=== PATIENT | male | born 1955 | race African-American/Black ===

== ENCOUNTER 2022-11-12 20:16 | Inpatient (IN) | payer MEDICARE, OTHER ==
[~2022-11-12] VITALS: Ht 182.9 cm; Wt 78.8 kg
[~2022-11-12 20:16] MED LIST: BUSP10TA31 PO; TRAZ-181 PO
[2022-11-12] MEDS ORDERED: LORazepam 2MG/ML-1ML VIAL ONE (21:07)
[2022-11-12] MEDS ORDERED: LORazepam 2MG/ML-1ML VIAL IV ONE (21:15)
[2022-11-12 21:54] LABS: Basophils # (auto) 0.1 10 ^3/uL (0-0.2); Basophils % (auto) 0.8 % (0.0-2.0); Eosinophils # (auto) 0.2 10 ^3/uL (0-0.8); Eosinophils % (auto) 2.1 % (0.0-7.0); Hematocrit 28.8 % (41.0-53.0); Hemoglobin 9.9 g/dL (13.5-17.5); Lymphocytes # (auto) 0.5 10 ^3/uL (0.4-5.4); Lymphocytes % (auto) 5.4 % (10.0-50.0); Mean Corpuscular Hemoglobin 29.8 pg (28.0-32.0); Mean Corpuscular Hgb Conc. 34.4 g/dL (32.0-36.0); Mean Corpuscular Volume 86.6 fL (80.0-100.0); Monocytes # (auto) 0.6 10 ^3/uL (0-1.3); Monocytes % (auto) 6.4 % (0.0-12.0); Neutrophils # (auto) 8.4 10 ^3/uL (1.6-8.6); Neutrophils % (auto) 85.3 % (37.0-80.0); Red Blood Cells 3.32 10^6/uL (4.5-5.90); Red Cell Distribution Width 15.7 % (11.8-14.3); White Blood Cell 9.9 10^3/uL (4.4-10.8)
[2022-11-12 22:08] LABS: INR 1.2 (0.9-1.15); Partial Thromboplastin Time 36.9 sec (24.6-33.4)
[2022-11-12 22:10] LABS: Albumin 3.2 g/dL (3.4-5.0); Anion Gap 12 (5-15); Blood Urea Nitrogen 13 mg/dL (7-18); Calcium 9.1 mg/dL (8.5-10.1); Carbon Dioxide 24 mmol/L (21-32); Chloride 107 mmol/L (98-107); Glucose 113 mg/dL (74-106); Magnesium 2.2 mg/dL (1.6-2.6); Sodium 143 mmol/L (136-145)
[2022-11-12 22:12] LABS: Alanine Aminotransferase 20 U/L (16-61); Aspartate Aminotransferase 18 U/L (15-37); BUN/Creatinine Ratio 14.6; Blood Alcohol < 3.0 mg/dL (0-5); GFR African American 109 mL/min; GFR Non-African American 90 mL/min
[2022-11-12 22:15] LABS: Alkaline Phosphatase 70 U/L (45-117); Bilirubin, Total 0.3 mg/dL (0.2-1.0); Total Protein 7.3 g/dL (6.4-8.2)
[2022-11-12 22:17] LABS: Lactic Acid w/Reflex 3.4 mmol/L (0.4-2.0)
[2022-11-12] MEDS ORDERED: levETIRAcetam 500 MG/5ML INJ IV ONE (23:08)
[2022-11-12] MEDS ORDERED: LABETALOL HCL 5 MG/ML 4ML SYRINGE IV ONE (23:30)
[2022-11-13] MEDS ORDERED: ONDANSETRON HCL 4 MG/2 ML VIAL IV PRN (00:30)
[2022-11-13] MEDS ORDERED: MORPHINE SULFATE INJ 2 MG/ml SYRG IV PRN (00:30)
[2022-11-13] MEDS ORDERED: ACETAMINOPHEN 325 MG TAB PO PRN (00:30)
[2022-11-13] MEDS ORDERED: HYDROcodone-ACET 5/325MG TAB PO PRN (00:30)
[2022-11-13] MEDS ORDERED: DOCUSATE SOD 100 MG CAP PO PRN (00:30)
[2022-11-13] MEDS ORDERED: MAALOX PLUS or MAALOX 30 ML PO PRN (00:30)
[2022-11-13] MEDS: SODIUM CHLORIDE 0.9% 1,000 ML IV SCH ×2 (03:02→17:10)
[2022-11-13] MEDS: hydrALAZINE HCL 20 MG/ML VL IV PRN ×2 (03:15→20:13)
[2022-11-13 04:38] LABS: Alcohol, Urine < 3.0 mg/dL (0-10); Amphetamine Screen, Urine NEGATIVE (NEGATIVE); Barbiturate Scree,Urine NEGATIVE (NEGATIVE); Benzodiazephine Screen, Urine POSITIVE (NEGATIVE); Cannabinoid Screen, Urine NEGATIVE (NEGATIVE); Cocaine Screen, Urine NEGATIVE (NEGATIVE); Opiate Scree,Urine NEGATIVE (NEGATIVE)
[2022-11-13 04:46] LABS: Phencyclidine Screen, Urine NEGATIVE (NEGATIVE)
[2022-11-13] MEDS: LORazepam 2MG/ML-1ML VIAL IV PRN ×2 (05:00→13:42)
[2022-11-13 05:01] LABS: Urine Bacteria NONE SEEN /hpf (None Seen); Urine Blood 1+ /uL (Negative); Urine Mucus FEW (None Seen); Urine Specific Gravity 1.024 (1.001-1.035); Urine WBC 1 /hpf (0 - 3)
[2022-11-13 07:40] LABS: Potassium 3.4 mmol/L (3.5-5.1)
[2022-11-13 07:45] LABS: BUN/Creatinine Ratio 20.7; Basophils # (auto) 0.1 10 ^3/uL (0-0.2); Basophils % (auto) 0.7 % (0.0-2.0); Calcium 9.1 mg/dL (8.5-10.1); Eosinophils # (auto) 0.3 10 ^3/uL (0-0.8); Eosinophils % (auto) 4.1 % (0.0-7.0); Hemoglobin 8.7 g/dL (13.5-17.5); Lymphocytes # (auto) 0.6 10 ^3/uL (0.4-5.4); Mean Corpuscular Hgb Conc. 33.7 g/dL (32.0-36.0); Mean Corpuscular Volume 86.3 fL (80.0-100.0); Monocytes # (auto) 0.5 10 ^3/uL (0-1.3); Monocytes % (auto) 6.1 % (0.0-12.0); Neutrophils # (auto) 6.6 10 ^3/uL (1.6-8.6); Neutrophils % (auto) 82.1 % (37.0-80.0); Red Blood Cells 3.01 10^6/uL (4.5-5.90); Red Cell Distribution Width 15.6 % (11.8-14.3)
[2022-11-13] MEDS ORDERED: LORazepam 2MG/ML-1ML VIAL IV PRN (21:45)
[2022-11-13 22:24] LABS: Free T4 (Free Thyroxine) 1.25 ng/dL (0.89-1.76)
[2022-11-13 22:25] LABS: Folate (Folic Acid) 15.82 ng/mL (5.38-24)
[2022-11-13] MEDS: ATORVASTATIN 20 MG TAB PO SCH (22:54)
[2022-11-14] MEDS: ACETAMINOPHEN 650 MG RECT SUPP PR PRN (00:25)
[2022-11-14] MEDS: LORazepam 2MG/ML-1ML VIAL IV PRN (00:52)
[2022-11-14] MEDS: hydrALAZINE HCL 20 MG/ML VL IV PRN ×2 (03:18→17:15)
[2022-11-14] MEDS: ASPirin 81 mg TAB PO SCH (10:00)
[2022-11-14] MEDS: SODIUM CHLORIDE 0.9% 1,000 ML IV SCH (10:05)
[2022-11-14 16:35] LABS: Cholesterol 124 mg/dL (< 200)
[2022-11-14 16:38] LABS: HDL Cholesterol 42 mg/dL (40-59); LDL Cholesterol 57 mg/dL (< 100); Triglycerides 89 mg/dL (< 150)
[2022-11-14 20:00] VITALS: BP 146/78
[2022-11-14 22:00] VITALS: BP 171/80
[2022-11-14] MEDS: ATORVASTATIN 20 MG TAB PO SCH (22:00)
[2022-11-15] MEDS: SODIUM CHLORIDE 0.9% 1,000 ML IV SCH (02:30)
[2022-11-15 05:00] VITALS: BP 145/73
[2022-11-15 09:00] VITALS: BP 157/80
[2022-11-15] MEDS ORDERED: cefTRIAXone 1GM/50ML D5W 50 ML IV ONE (09:30)
[2022-11-15] MEDS: ASPirin 81 mg TAB PO SCH (10:00)
[2022-11-15] MEDS ORDERED: SODIUM CHLORIDE 0.9% 1,000 ML IV SCH (10:00)
[2022-11-15 10:29] LABS: Alanine Aminotransferase 16 U/L (16-61); Albumin 3.2 g/dL (3.4-5.0); Aspartate Aminotransferase 19 U/L (15-37); Basophils # (auto) 0 10 ^3/uL (0-0.2); Basophils % (auto) 0.5 % (0.0-2.0); Bilirubin, Direct < 0.1 mg/dL (0-0.2); Eosinophils # (auto) 0.1 10 ^3/uL (0-0.8); Eosinophils % (auto) 0.6 % (0.0-7.0); Hematocrit 27.8 % (41.0-53.0); Hemoglobin 8.9 g/dL (13.5-17.5); Lymphocytes # (auto) 0.6 10 ^3/uL (0.4-5.4); Lymphocytes % (auto) 7.1 % (10.0-50.0); Mean Corpuscular Hemoglobin 28.4 pg (28.0-32.0); Mean Corpuscular Hgb Conc. 32.2 g/dL (32.0-36.0); Mean Corpuscular Volume 88.2 fL (80.0-100.0); Monocytes # (auto) 0.6 10 ^3/uL (0-1.3); Monocytes % (auto) 6.6 % (0.0-12.0); Neutrophils # (auto) 7.4 10 ^3/uL (1.6-8.6); Neutrophils % (auto) 85.2 % (37.0-80.0); Red Blood Cells 3.15 10^6/uL (4.5-5.90); Red Cell Distribution Width 15.4 % (11.8-14.3); White Blood Cell 8.7 10^3/uL (4.4-10.8)
[2022-11-15 10:30] LABS: Potassium 3.6 mmol/L (3.5-5.1)
[2022-11-15] MEDS ORDERED: PHENYTOIN IV DILANTIN 1,000 MG in SODIUM CHL 0.9% 250 ML IV ONE (10:30)
[2022-11-15 10:31] LABS: BUN/Creatinine Ratio 21.2; Calcium 9.3 mg/dL (8.5-10.1)
[2022-11-15 10:32] LABS: Alkaline Phosphatase 58 U/L (45-117); Bilirubin, Total 0.5 mg/dL (0.2-1.0); Total Protein 7.1 g/dL (6.4-8.2)
[2022-11-15] MEDS: D5W/SOD CHLO 0.9% 1,000 ML IV SCH ×2 (12:55→21:47)
[2022-11-15 13:00] VITALS: BP 154/79
[2022-11-15] MEDS: hydrALAZINE HCL 20 MG/ML VL IV PRN (13:47)
[2022-11-15] MEDS ORDERED: PHENYTOIN SODIUM 50 MG/ML 2ML VIAL IV SCH (14:00)
[2022-11-15] MEDS: ACETAMINOPHEN 650 MG RECT SUPP PR PRN (14:46)
[2022-11-15] MEDS: LORazepam 2MG/ML-1ML VIAL IV PRN (15:05)
[2022-11-15 17:00] VITALS: BP 158/82
[2022-11-15] MEDS ORDERED: VALPROATE IV ONE (19:15)
[2022-11-15] MEDS ORDERED: SODIUM CHL 0.9% IV ONE (19:15)
[2022-11-15] MEDS: ATORVASTATIN 20 MG TAB PO SCH (21:48)
[2022-11-15 22:00] VITALS: BP 160/80
[2022-11-16 05:00] VITALS: BP 136/59
[2022-11-16] MEDS: VALPROATE INJ 500 MG in SODIUM CHL 0.9% 100 ML IV SCH ×3 (05:19→21:30)
[2022-11-16] MEDS: LORazepam 2MG/ML-1ML VIAL IV PRN (05:37)
[2022-11-16 06:03] LABS: Urine Bacteria NONE SEEN /hpf (None Seen); Urine Blood Negative /uL (Negative); Urine Mucus FEW (None Seen); Urine Specific Gravity 1.028 (1.001-1.035); Urine WBC 3 /hpf (0 - 3)
[2022-11-16 06:11] LABS: Basophils # (auto) 0 10 ^3/uL (0-0.2); Basophils % (auto) 0.6 % (0.0-2.0); Eosinophils # (auto) 0.2 10 ^3/uL (0-0.8); Eosinophils % (auto) 3.5 % (0.0-7.0); Hematocrit 25.2 % (41.0-53.0); Hemoglobin 8.7 g/dL (13.5-17.5); Lymphocytes # (auto) 0.7 10 ^3/uL (0.4-5.4); Lymphocytes % (auto) 10.9 % (10.0-50.0); Mean Corpuscular Hemoglobin 29.8 pg (28.0-32.0); Mean Corpuscular Hgb Conc. 34.3 g/dL (32.0-36.0); Mean Corpuscular Volume 86.7 fL (80.0-100.0); Monocytes # (auto) 0.4 10 ^3/uL (0-1.3); Monocytes % (auto) 5.6 % (0.0-12.0); Neutrophils # (auto) 5.4 10 ^3/uL (1.6-8.6); Neutrophils % (auto) 79.4 % (37.0-80.0); Red Blood Cells 2.91 10^6/uL (4.5-5.90); Red Cell Distribution Width 15.1 % (11.8-14.3); White Blood Cell 6.8 10^3/uL (4.4-10.8)
[2022-11-16 06:31] LABS: BUN/Creatinine Ratio 22.2; Calcium 8.7 mg/dL (8.5-10.1); Potassium 3.2 mmol/L (3.5-5.1)
[2022-11-16 09:00] VITALS: BP 158/76
[2022-11-16] MEDS: cefTRIAXone 1GM/50ML D5W 50 ML IV SCH (09:53)
[2022-11-16] MEDS: ASPirin 81 mg TAB PO SCH (10:00)
[2022-11-16 12:54] VITALS: BP 155/79
[2022-11-16] MEDS ORDERED: D5W/SOD CHLO 0.9% 1,000 ML IV SCH (16:45)
[2022-11-16] MEDS ORDERED: VANCOMYCIN PER PHARMACY 0 MG IV SCH (16:45)
[2022-11-16 17:00] VITALS: BP 171/86
[2022-11-16] MEDS ORDERED: VANCOMYCIN 1GM/250ML 250 ML IV ONE ×2 (17:00→17:15)
[2022-11-16] MEDS: hydrALAZINE HCL 20 MG/ML VL IV PRN (21:30)
[2022-11-16 22:00] VITALS: BP 179/85
[2022-11-16] MEDS: ATORVASTATIN 20 MG TAB PO SCH (22:00)
[2022-11-17] VITALS (7 sets, daily range): BP systolic 147–166; BP diastolic 76–89
[2022-11-17] MEDS: VANCOMYCIN 1GM/250ML 250 ML IV SCH ×2 (03:00→15:34)
[2022-11-17] MEDS: VALPROATE INJ 500 MG in SODIUM CHL 0.9% 100 ML IV SCH ×3 (05:32→21:16)
[2022-11-17 06:07] LABS: Basophils # (auto) 0 10 ^3/uL (0-0.2); Basophils % (auto) 0.5 % (0.0-2.0); Eosinophils # (auto) 0.2 10 ^3/uL (0-0.8); Eosinophils % (auto) 2.2 % (0.0-7.0); Hematocrit 26.2 % (41.0-53.0); Hemoglobin 8.7 g/dL (13.5-17.5); Lymphocytes # (auto) 0.8 10 ^3/uL (0.4-5.4); Lymphocytes % (auto) 11.4 % (10.0-50.0); Mean Corpuscular Hemoglobin 28.7 pg (28.0-32.0); Mean Corpuscular Hgb Conc. 33.2 g/dL (32.0-36.0); Mean Corpuscular Volume 86.4 fL (80.0-100.0); Monocytes # (auto) 0.4 10 ^3/uL (0-1.3); Monocytes % (auto) 6.3 % (0.0-12.0); Neutrophils # (auto) 5.5 10 ^3/uL (1.6-8.6); Neutrophils % (auto) 79.6 % (37.0-80.0); Nucleated Red Blood Cells % 0.1 %; Red Blood Cells 3.03 10^6/uL (4.5-5.90); Red Cell Distribution Width 15.1 % (11.8-14.3); White Blood Cell 6.9 10^3/uL (4.4-10.8)
[2022-11-17 06:29] LABS: BUN/Creatinine Ratio 19.2; Calcium 8.5 mg/dL (8.5-10.1); Potassium 3.3 mmol/L (3.5-5.1)
[2022-11-17] MEDS: cefTRIAXone 1GM/50ML D5W 50 ML IV SCH (09:25)
[2022-11-17] MEDS: ASPirin 81 mg TAB PO SCH (09:26)
[2022-11-17] MEDS: hydrALAZINE HCL 20 MG/ML VL IV PRN ×2 (09:50→18:04)
[2022-11-17] MEDS: D5W/SOD CHL 0.45%/KCL 20MEQ 1,000 ML IV SCH (18:45)
[2022-11-17] MEDS: ATORVASTATIN 20 MG TAB PO SCH (22:00)
[2022-11-18] MEDS: VANCOMYCIN 1GM/250ML 250 ML IV SCH (00:53)
[2022-11-18] MEDS: ALBUTEROL SULF 2.5 MG/0.5ML(0.5%) NEB SOLN NEB PRN (02:15)
[2022-11-18] MEDS: IPRATROPIUM BROM 0.5 MG/2.5ML INH SOL NEB PRN (02:15)
[2022-11-18] MEDS ORDERED: ALBUTEROL MEDNEB 2.5 mg/3ml NEB ONE (02:20)
[2022-11-18 04:59] VITALS: BP 193/97
[2022-11-18 05:27] LABS: Basophils # (auto) 0 10 ^3/uL (0-0.2); Basophils % (auto) 0.3 % (0.0-2.0); Eosinophils # (auto) 0.2 10 ^3/uL (0-0.8); Eosinophils % (auto) 1.8 % (0.0-7.0); Hematocrit 26.4 % (41.0-53.0); Hemoglobin 8.7 g/dL (13.5-17.5); Lymphocytes # (auto) 0.8 10 ^3/uL (0.4-5.4); Lymphocytes % (auto) 9.5 % (10.0-50.0); Mean Corpuscular Hemoglobin 28.8 pg (28.0-32.0); Mean Corpuscular Hgb Conc. 32.8 g/dL (32.0-36.0); Mean Corpuscular Volume 87.8 fL (80.0-100.0); Monocytes # (auto) 0.5 10 ^3/uL (0-1.3); Monocytes % (auto) 5.5 % (0.0-12.0); Neutrophils # (auto) 6.9 10 ^3/uL (1.6-8.6); Neutrophils % (auto) 82.9 % (37.0-80.0); Red Blood Cells 3.01 10^6/uL (4.5-5.90); Red Cell Distribution Width 15.2 % (11.8-14.3); White Blood Cell 8.4 10^3/uL (4.4-10.8)
[2022-11-18 06:02] LABS: Potassium 3.3 mmol/L (3.5-5.1)
[2022-11-18 06:11] LABS: BUN/Creatinine Ratio 20.4; Calcium 8.8 mg/dL (8.5-10.1)
[2022-11-18] MEDS: VALPROATE INJ 500 MG in SODIUM CHL 0.9% 100 ML IV SCH ×3 (06:42→20:54)
[2022-11-18 08:50] VITALS: BP 173/87
[2022-11-18] MEDS: cefTRIAXone 1GM/50ML D5W 50 ML IV SCH (09:18)
[2022-11-18] MEDS: LINEZOLID 600MG/300ML 300 ML IV SCH ×2 (09:21→22:55)
[2022-11-18] MEDS: ASPirin 81 mg TAB PO SCH (10:00)
[2022-11-18] MEDS: D5W/SOD CHL 0.45%/KCL 20MEQ 1,000 ML IV SCH (11:45)
[2022-11-18 13:00] VITALS: BP 187/90
[2022-11-18 17:00] VITALS: BP 151/88
[2022-11-18 22:00] VITALS: BP 188/89
[2022-11-18] MEDS: ATORVASTATIN 20 MG TAB PO SCH (22:00)
[2022-11-18] MEDS: hydrALAZINE HCL 20 MG/ML VL IV PRN (23:21)
[2022-11-19 05:00] VITALS: BP 161/72
[2022-11-19] MEDS: VALPROATE INJ 500 MG in SODIUM CHL 0.9% 100 ML IV SCH ×3 (05:16→20:01)
[2022-11-19 06:26] LABS: Potassium 3.1 mmol/L (3.5-5.1)
[2022-11-19 06:27] LABS: Basophils # (auto) 0.1 10 ^3/uL (0-0.2); Basophils % (auto) 0.7 % (0.0-2.0); Eosinophils # (auto) 0.5 10 ^3/uL (0-0.8); Eosinophils % (auto) 6.4 % (0.0-7.0); Hematocrit 24.6 % (41.0-53.0); Hemoglobin 8.6 g/dL (13.5-17.5); Lymphocytes # (auto) 0.5 10 ^3/uL (0.4-5.4); Lymphocytes % (auto) 6.8 % (10.0-50.0); Mean Corpuscular Hemoglobin 29.6 pg (28.0-32.0); Mean Corpuscular Hgb Conc. 34.9 g/dL (32.0-36.0); Mean Corpuscular Volume 84.8 fL (80.0-100.0); Monocytes # (auto) 0.4 10 ^3/uL (0-1.3); Monocytes % (auto) 5.6 % (0.0-12.0); Neutrophils # (auto) 6.1 10 ^3/uL (1.6-8.6); Neutrophils % (auto) 80.5 % (37.0-80.0); Red Cell Distribution Width 14.7 % (11.8-14.3); White Blood Cell 7.6 10^3/uL (4.4-10.8)
[2022-11-19 06:28] LABS: BUN/Creatinine Ratio 8.5; Calcium 8.8 mg/dL (8.5-10.1)
[2022-11-19] MEDS: D5W/SOD CHL 0.45%/KCL 20MEQ 1,000 ML IV SCH (08:01)
[2022-11-19] MEDS: cefTRIAXone 1GM/50ML D5W 50 ML IV SCH (08:10)
[2022-11-19 09:00] VITALS: BP 143/77
[2022-11-19] MEDS: LINEZOLID 600MG/300ML 300 ML IV SCH ×2 (09:13→22:00)
[2022-11-19] MEDS: ASPirin 81 mg TAB PO SCH (09:17)
[2022-11-19 13:00] VITALS: BP 165/79
[2022-11-19 16:49] VITALS: BP 174/88
[2022-11-19 22:00] VITALS: BP 187/88
[2022-11-19] MEDS: ATORVASTATIN 20 MG TAB PO SCH (22:00)
[2022-11-19] MEDS: hydrALAZINE HCL 20 MG/ML VL IV PRN (22:00)
[2022-11-20] VITALS (7 sets, daily range): BP systolic 144–186; BP diastolic 70–96
[2022-11-20] MEDS: D5W/SOD CHL 0.45%/KCL 20MEQ 1,000 ML IV SCH ×2 (03:45→23:45)
[2022-11-20] MEDS: VALPROATE INJ 500 MG in SODIUM CHL 0.9% 100 ML IV SCH ×3 (05:23→20:48)
[2022-11-20 06:12] LABS: Basophils # (auto) 0 10 ^3/uL (0-0.2); Basophils % (auto) 0.6 % (0.0-2.0); Eosinophils # (auto) 0.3 10 ^3/uL (0-0.8); Eosinophils % (auto) 5.5 % (0.0-7.0); Hematocrit 25.9 % (41.0-53.0); Hemoglobin 8.9 g/dL (13.5-17.5); Lymphocytes # (auto) 0.6 10 ^3/uL (0.4-5.4); Lymphocytes % (auto) 9.9 % (10.0-50.0); Mean Corpuscular Hemoglobin 29.3 pg (28.0-32.0); Mean Corpuscular Hgb Conc. 34.3 g/dL (32.0-36.0); Mean Corpuscular Volume 85.5 fL (80.0-100.0); Monocytes # (auto) 0.4 10 ^3/uL (0-1.3); Neutrophils # (auto) 4.7 10 ^3/uL (1.6-8.6); Nucleated Red Blood Cells % 0.1 %; Red Blood Cells 3.03 10^6/uL (4.5-5.90); Red Cell Distribution Width 15.1 % (11.8-14.3); White Blood Cell 6.1 10^3/uL (4.4-10.8)
[2022-11-20 06:27] LABS: BUN/Creatinine Ratio 6.8; Calcium 8.8 mg/dL (8.5-10.1); Potassium 3.1 mmol/L (3.5-5.1)
[2022-11-20] MEDS: cefTRIAXone 1GM/50ML D5W 50 ML IV SCH (08:24)
[2022-11-20] MEDS: hydrALAZINE HCL 20 MG/ML VL IV PRN ×2 (08:46→21:53)
[2022-11-20] MEDS: ASPirin 81 mg TAB PO SCH (10:00)
[2022-11-20] MEDS: LINEZOLID 600MG/300ML 300 ML IV SCH ×2 (10:15→22:19)
[2022-11-20] MEDS: POTASSIUM CHL 20MEQ/100ML 100 ML IV SCH ×2 (15:30→17:59)
[2022-11-20] MEDS: IPRATROPIUM BROM 0.5 MG/2.5ML INH SOL NEB PRN (18:28)
[2022-11-20] MEDS: ALBUTEROL SULF 2.5 MG/0.5ML(0.5%) NEB SOLN NEB PRN (18:28)
[2022-11-20] MEDS ORDERED: ALBUTEROL MEDNEB 2.5 mg/3ml NEB ONE (18:33)
[2022-11-20] MEDS: ATORVASTATIN 20 MG TAB PO SCH (21:59)
[2022-11-21 04:52] VITALS: BP 185/92
[2022-11-21] MEDS: VALPROATE INJ 500 MG in SODIUM CHL 0.9% 100 ML IV SCH ×3 (05:07→20:37)
[2022-11-21] MEDS: hydrALAZINE HCL 20 MG/ML VL IV PRN ×3 (05:07→18:07)
[2022-11-21 05:53] LABS: Basophils # (auto) 0 10 ^3/uL (0-0.2); Basophils % (auto) 0.9 % (0.0-2.0); Eosinophils # (auto) 0.2 10 ^3/uL (0-0.8); Eosinophils % (auto) 4.3 % (0.0-7.0); Hematocrit 27.6 % (41.0-53.0); Hemoglobin 9.1 g/dL (13.5-17.5); Lymphocytes # (auto) 0.6 10 ^3/uL (0.4-5.4); Mean Corpuscular Hemoglobin 28.4 pg (28.0-32.0); Mean Corpuscular Volume 85.9 fL (80.0-100.0); Monocytes # (auto) 0.4 10 ^3/uL (0-1.3); Monocytes % (auto) 8.3 % (0.0-12.0); Neutrophils # (auto) 3.9 10 ^3/uL (1.6-8.6); Neutrophils % (auto) 74.5 % (37.0-80.0); Nucleated Red Blood Cells % 0.1 %; Red Blood Cells 3.21 10^6/uL (4.5-5.90); Red Cell Distribution Width 14.9 % (11.8-14.3); White Blood Cell 5.2 10^3/uL (4.4-10.8)
[2022-11-21 06:02] VITALS: BP 148/68
[2022-11-21 06:12] LABS: BUN/Creatinine Ratio 4.5; Calcium 8.9 mg/dL (8.5-10.1); Potassium 3.3 mmol/L (3.5-5.1)
[2022-11-21 07:29] VITALS: BP 181/87
[2022-11-21] MEDS: cefTRIAXone 1GM/50ML D5W 50 ML IV SCH (08:28)
[2022-11-21 09:00] VITALS: BP 181/87
[2022-11-21] MEDS: LINEZOLID 600MG/300ML 300 ML IV SCH ×2 (09:14→22:28)
[2022-11-21] MEDS: ASPirin 81 mg TAB PO SCH (09:15)
[2022-11-21] MEDS ORDERED: SODIUM CHLORIDE LOCK 20 ML ONE (12:21)
[2022-11-21] MEDS ORDERED: ONDANSETRON HCL 4 MG/2 ML VIAL ONE (12:21)
[2022-11-21] MEDS ORDERED: fentaNYL CITRATE 100 MCG/2 ML VL ONE (12:21)
[2022-11-21] MEDS ORDERED: PROPOFOL 10 MG/ML 20 ML IV ONE (12:21)
[2022-11-21] MEDS ORDERED: MIDAZOLAM HCL 2MG/2ML 2ml VIAL (1mg/ml) ONE (12:21)
[2022-11-21] MEDS ORDERED: DexAMETHasone SOD PHOS 10MG/1ML VIAL INJ ONE (12:21)
[2022-11-21] MEDS ORDERED: KETAMINE HCL 10 ML ONE (12:21)
[2022-11-21] MEDS ORDERED: MORPHINE SULFATE INJ 2 MG/ml SYRG IV PRN (13:30)
[2022-11-21] MEDS ORDERED: ONDANSETRON HCL 4 MG/2 ML VIAL IV PRN (13:30)
[2022-11-21] MEDS ORDERED: HYDROmorphone HCL 2 MG/ML VL/or syr IV PRN ×2 (13:30)
[2022-11-21] MEDS: ceFAZolin 1GM VL ONE ×2 (13:38→13:55)
[2022-11-21 17:00] VITALS: BP 163/84
[2022-11-21] MEDS ORDERED: LIDOCAINE 1% (LOCAL ANESTH.) PF 5ml SDV ID ONE (17:00)
[2022-11-21] MEDS: D5W/SOD CHL 0.45%/KCL 20MEQ 1,000 ML IV SCH (20:36)
[2022-11-21 22:00] VITALS: BP 167/77
[2022-11-21] MEDS: ATORVASTATIN 20 MG TAB PO SCH (22:00)
[2022-11-21] MEDS: SODIUM CHLOR 0.9% PF (SALINE LOCK) 10ML VIAL/SYR IV SCH (22:02)
[2022-11-22] MEDS: VALPROATE INJ 500 MG in SODIUM CHL 0.9% 100 ML IV SCH ×3 (04:47→20:29)
[2022-11-22 05:00] VITALS: BP 163/82
[2022-11-22] MEDS: hydrALAZINE HCL 20 MG/ML VL IV PRN ×2 (06:13→12:34)
[2022-11-22 07:30] VITALS: BP 157/78
[2022-11-22 08:15] VITALS: BP 157/78
[2022-11-22] MEDS: SODIUM CHLOR 0.9% PF (SALINE LOCK) 10ML VIAL/SYR IV SCH ×2 (08:56→22:33)
[2022-11-22] MEDS: ASPirin 81 mg TAB PO SCH (08:56)
[2022-11-22] MEDS: cefTRIAXone 1GM/50ML D5W 50 ML IV SCH (08:56)
[2022-11-22] MEDS: LINEZOLID 600MG/300ML 300 ML IV SCH ×2 (10:28→22:32)
[2022-11-22] MEDS: POTASSIUM CHL 20MEQ/100ML 100 ML IV SCH ×2 (11:32→13:36)
[2022-11-22 12:10] VITALS: BP 168/78
[2022-11-22] MEDS: D5W/SOD CHL 0.45%/KCL 20MEQ 1,000 ML IV SCH (15:45)
[2022-11-22 16:10] VITALS: BP 140/72
[2022-11-22 21:45] VITALS: BP 157/54
[2022-11-22] MEDS: ATORVASTATIN 20 MG TAB PO SCH (22:46)
[2022-11-23 05:00] VITALS: BP 183/85
[2022-11-23] MEDS: VALPROATE INJ 500 MG in SODIUM CHL 0.9% 100 ML IV SCH ×3 (05:26→21:04)
[2022-11-23] MEDS: hydrALAZINE HCL 20 MG/ML VL IV PRN ×3 (05:27→21:52)
[2022-11-23 09:00] VITALS: BP 167/76
[2022-11-23] MEDS: cefTRIAXone 1GM/50ML D5W 50 ML IV SCH (09:36)
[2022-11-23 09:47] VITALS: BP 171/88
[2022-11-23] MEDS: ASPirin 81 mg TAB PO SCH (10:39)
[2022-11-23] MEDS: SODIUM CHLOR 0.9% PF (SALINE LOCK) 10ML VIAL/SYR IV SCH ×2 (10:39→21:56)
[2022-11-23] MEDS: METOPROLOL TARTRATE 50 MG TAB PO SCH ×2 (10:41→21:50)
[2022-11-23] MEDS: LINEZOLID 600MG/300ML 300 ML IV SCH ×2 (11:11→23:08)
[2022-11-23] MEDS: D5W/SOD CHL 0.45%/KCL 20MEQ 1,000 ML IV SCH (11:45)
[2022-11-23 13:00] VITALS: BP 183/93
[2022-11-23] MEDS ORDERED: CLON0.1T PO (16:31)
[2022-11-23] MEDS ORDERED: AML5T PO (16:31)
[2022-11-23 17:00] VITALS: BP 162/72
[2022-11-23] MEDS ORDERED: POTASSIUM CHLORIDE 60 MEQ, LIDOCAINE 1% (LOCAL ANESTH.) 6 ML in SODIUM CHL 0.9% 500 ML IV ONE (17:30)
[2022-11-23] MEDS ORDERED: cloNIDine 0.2 mg/24hr 7DAY PATCH TD SCH (17:30)
[2022-11-23] MEDS: ATORVASTATIN 20 MG TAB PO SCH (21:46)
[2022-11-23 22:00] VITALS: BP 174/79
[2022-11-24 05:00] VITALS: BP 157/76
[2022-11-24] MEDS: VALPROATE INJ 500 MG in SODIUM CHL 0.9% 100 ML IV SCH ×3 (05:16→21:22)
[2022-11-24] MEDS: hydrALAZINE HCL 20 MG/ML VL IV PRN ×2 (05:46→22:56)
[2022-11-24 09:00] VITALS: BP 174/72
[2022-11-24 09:16] LABS: Calcium 8.7 mg/dL (8.5-10.1); Potassium 3.8 mmol/L (3.5-5.1)
[2022-11-24 09:20] LABS: BUN/Creatinine Ratio 18.9
[2022-11-24] MEDS: cefTRIAXone 1GM/50ML D5W 50 ML IV SCH (09:26)
[2022-11-24] MEDS: LINEZOLID 600MG/300ML 300 ML IV SCH ×2 (10:22→23:34)
[2022-11-24] MEDS: SODIUM CHLOR 0.9% PF (SALINE LOCK) 10ML VIAL/SYR IV SCH ×2 (10:22→22:55)
[2022-11-24] MEDS: ASPirin 81 mg TAB PO SCH (10:22)
[2022-11-24] MEDS: NIFEdipine ER 30 MG TAB PO SCH (10:23)
[2022-11-24] MEDS: METOPROLOL TARTRATE 50 MG TAB PO SCH (10:23)
[2022-11-24 13:00] VITALS: BP 169/69
[2022-11-24 17:00] VITALS: BP 154/79
[2022-11-24 22:00] VITALS: BP 172/92
[2022-11-25] MEDS: ATORVASTATIN 20 MG TAB PO SCH ×2 (00:49→23:12)
[2022-11-25] MEDS: METOPROLOL TARTRATE 50 MG TAB PO SCH ×3 (00:50→23:16)
[2022-11-25 05:00] VITALS: BP 167/91
[2022-11-25] MEDS: VALPROATE INJ 500 MG in SODIUM CHL 0.9% 100 ML IV SCH ×3 (05:48→21:40)
[2022-11-25] MEDS: hydrALAZINE HCL 20 MG/ML VL IV PRN ×2 (05:50→12:47)
[2022-11-25 08:54] VITALS: BP 171/78
[2022-11-25] MEDS: SODIUM CHLOR 0.9% PF (SALINE LOCK) 10ML VIAL/SYR IV SCH ×2 (09:07→23:11)
[2022-11-25] MEDS: LINEZOLID 600MG/300ML 300 ML IV SCH ×2 (09:15→23:16)
[2022-11-25] MEDS: cefTRIAXone 1GM/50ML D5W 50 ML IV SCH (09:15)
[2022-11-25] MEDS: NIFEdipine ER 30 MG TAB PO SCH (09:16)
[2022-11-25] MEDS: ASPirin 81 mg TAB PO SCH (09:16)
[2022-11-25 13:00] VITALS: BP 161/71
[2022-11-25 17:00] VITALS: BP 159/98
[2022-11-25 22:00] VITALS: BP 144/89
[2022-11-26] MEDS: VALPROATE INJ 500 MG in SODIUM CHL 0.9% 100 ML IV SCH ×3 (04:38→21:14)
[2022-11-26 05:00] VITALS: BP 179/93
[2022-11-26] MEDS: hydrALAZINE HCL 20 MG/ML VL IV PRN (06:21)
[2022-11-26 08:30] VITALS: BP 142/85
[2022-11-26] MEDS: cefTRIAXone 1GM/50ML D5W 50 ML IV SCH (09:38)
[2022-11-26] MEDS: ASPirin 81 mg TAB PO SCH (09:38)
[2022-11-26] MEDS: LINEZOLID 600MG/300ML 300 ML IV SCH ×2 (09:38→22:32)
[2022-11-26] MEDS: SODIUM CHLOR 0.9% PF (SALINE LOCK) 10ML VIAL/SYR IV SCH ×2 (09:39→22:32)
[2022-11-26] MEDS: METOPROLOL TARTRATE 50 MG TAB PO SCH ×2 (09:39→22:34)
[2022-11-26] MEDS: NIFEdipine ER 30 MG TAB PO SCH (09:39)
[2022-11-26 12:57] VITALS: BP 147/76
[2022-11-26 16:22] VITALS: BP 128/65
[2022-11-26 22:00] VITALS: BP 133/79
[2022-11-26] MEDS: ATORVASTATIN 20 MG TAB PO SCH (22:33)
[2022-11-27] MEDS: VALPROATE INJ 500 MG in SODIUM CHL 0.9% 100 ML IV SCH ×3 (04:52→21:15)
[2022-11-27 05:00] VITALS: BP 163/73
[2022-11-27 08:34] VITALS: BP 154/85
[2022-11-27] MEDS: cefTRIAXone 1GM/50ML D5W 50 ML IV SCH (09:32)
[2022-11-27] MEDS: ASPirin 81 mg TAB PO SCH (09:33)
[2022-11-27] MEDS: METOPROLOL TARTRATE 50 MG TAB PO SCH ×2 (09:33→22:14)
[2022-11-27] MEDS: NIFEdipine ER 30 MG TAB PO SCH (09:33)
[2022-11-27] MEDS: SODIUM CHLOR 0.9% PF (SALINE LOCK) 10ML VIAL/SYR IV SCH ×2 (09:50→22:11)
[2022-11-27] MEDS: LINEZOLID 600MG/300ML 300 ML IV SCH ×2 (11:39→22:40)
[2022-11-27 12:30] VITALS: BP 151/77
[2022-11-27] MEDS: hydrALAZINE HCL 20 MG/ML VL IV PRN (12:46)
[2022-11-27 16:33] VITALS: BP 132/67
[2022-11-27 21:53] VITALS: BP 128/74
[2022-11-27] MEDS: ATORVASTATIN 20 MG TAB PO SCH (22:15)
[2022-11-28 05:00] VITALS: BP 165/75
[2022-11-28] MEDS: VALPROATE INJ 500 MG in SODIUM CHL 0.9% 100 ML IV SCH ×3 (05:06→20:53)
[2022-11-28] MEDS: hydrALAZINE HCL 20 MG/ML VL IV PRN ×2 (05:07→12:24)
[2022-11-28 09:00] VITALS: BP 162/73
[2022-11-28] MEDS: cefTRIAXone 1GM/50ML D5W 50 ML IV SCH (09:03)
[2022-11-28] MEDS: ASPirin 81 mg TAB PO SCH (09:04)
[2022-11-28] MEDS: METOPROLOL TARTRATE 50 MG TAB PO SCH ×2 (09:04→22:13)
[2022-11-28] MEDS: NIFEdipine ER 30 MG TAB PO SCH (09:04)
[2022-11-28] MEDS: SODIUM CHLOR 0.9% PF (SALINE LOCK) 10ML VIAL/SYR IV SCH ×2 (10:27→22:14)
[2022-11-28] MEDS: LINEZOLID 600MG/300ML 300 ML IV SCH ×2 (11:15→22:43)
[2022-11-28 13:00] VITALS: BP 171/78
[2022-11-28 16:47] VITALS: BP 116/71
[2022-11-28 22:00] VITALS: BP 131/75
[2022-11-28] MEDS: ATORVASTATIN 20 MG TAB PO SCH (22:13)
[2022-11-29] MEDS: VALPROATE INJ 500 MG in SODIUM CHL 0.9% 100 ML IV SCH ×3 (04:56→21:17)
[2022-11-29 05:00] VITALS: BP 172/86
[2022-11-29] MEDS: hydrALAZINE HCL 20 MG/ML VL IV PRN (06:06)
[2022-11-29 07:14] VITALS: BP 150/77
[2022-11-29] MEDS ORDERED: DIVA500T2 PO (08:39)
[2022-11-29] MEDS ORDERED: LEVO500T31 PO (08:39)
[2022-11-29] MEDS ORDERED: METO-158 PO (08:39)
[2022-11-29] MEDS ORDERED: ASPI-498 PO (08:39)
[2022-11-29] MEDS ORDERED: NIFE90TA49 PO (08:39)
[2022-11-29] MEDS ORDERED: LEVE500T32 PO (08:39)
[2022-11-29] MEDS ORDERED: LINE1TAB5 PO (08:39)
[2022-11-29] MEDS ORDERED: ATO40T PO (08:39)
[2022-11-29 09:00] VITALS: BP 148/70
[2022-11-29] MEDS: cefTRIAXone 1GM/50ML D5W 50 ML IV SCH (09:52)
[2022-11-29] MEDS: LINEZOLID 600MG/300ML 300 ML IV SCH ×2 (09:53→22:20)
[2022-11-29] MEDS: ASPirin 81 mg TAB PO SCH (09:53)
[2022-11-29] MEDS: METOPROLOL TARTRATE 50 MG TAB PO SCH ×2 (09:54→22:20)
[2022-11-29] MEDS: NIFEdipine ER 30 MG TAB PO SCH (09:55)
[2022-11-29] MEDS: SODIUM CHLOR 0.9% PF (SALINE LOCK) 10ML VIAL/SYR IV SCH (09:55)
[2022-11-29 13:00] VITALS: BP 161/71
[2022-11-29 17:00] VITALS: BP 160/68
[2022-11-29 22:00] VITALS: BP 154/73
[2022-11-29] MEDS: ATORVASTATIN 20 MG TAB PO SCH (22:20)
[2022-11-30] MEDS: VALPROATE INJ 500 MG in SODIUM CHL 0.9% 100 ML IV SCH ×2 (04:41→13:27)
[2022-11-30] MEDS: hydrALAZINE HCL 20 MG/ML VL IV PRN (04:41)
[2022-11-30 04:53] VITALS: BP 190/102
[2022-11-30 06:44] VITALS: BP 170/105
[2022-11-30 08:00] VITALS: BP 172/88
[2022-11-30 09:00] VITALS: BP 172/88
[2022-11-30] MEDS: cefTRIAXone 1GM/50ML D5W 50 ML IV SCH (09:33)
[2022-11-30] MEDS: ASPirin 81 mg TAB PO SCH (09:33)
[2022-11-30] MEDS: NIFEdipine ER 30 MG TAB PO SCH (09:34)
[2022-11-30] MEDS: METOPROLOL TARTRATE 50 MG TAB PO SCH (09:35)
[2022-11-30] MEDS: LINEZOLID 600MG/300ML 300 ML IV SCH (11:25)
[2022-11-30 12:27] VITALS: BP 148/82
[2022-11-30 13:06] VITALS: BP 148/82
[2022-11-30] MEDS ORDERED: LINE1TAB6 PO (18:32)
[2022-11-30] MEDS ORDERED: METO-158 PO (18:46)
[2022-11-30] MEDS ORDERED: LEVE500T32 PO (18:46)
[2022-11-30] MEDS ORDERED: DIVA500T2 PO (18:46)
[2022-11-30] MEDS ORDERED: ASPI-498 PO (18:46)
[2022-11-30] MEDS ORDERED: ATO40T PO (18:46)
[2022-11-30] MEDS ORDERED: NIFE90TA49 PO (18:46)
[2022-11-30] MEDS ORDERED: LEVO500T31 PO (18:46)
== END 2022-11-30 15:12 | disposition home health service (06) | DRG 166 ==
LOC: ER 20:16 → EDBD 20:16 → OVERFLOW 11-13 00:26 → TELE-CENTR 11-14 16:45
PROVIDERS: ADMIT Hospitalist; ATTEND Family Medicine
PROC: 0JB70ZZ Excision of Back Subcutaneous Tissue and Fascia, Open Approach (ICD-10-PCS; principal; 2022-11-21 13:35)
DX: J69.0 Pneumonitis due to inhalation of food and vomit (principal); J96.01 Acute respiratory failure with hypoxia; I16.9 Hypertensive crisis, unspecified; G40.901 Epilepsy, unspecified, not intractable, with status epilepticus; F03.90 Unspecified dementia, unspecified severity, without behavioral disturbance, psychotic disturbance, mood disturbance, and anxiety; I10 Essential (primary) hypertension; E87.6 Hypokalemia; L89.150 Pressure ulcer of sacral region, unstageable; J45.909 Unspecified asthma, uncomplicated; F17.210 Nicotine dependence, cigarettes, uncomplicated; G40.409 Other generalized epilepsy and epileptic syndromes, not intractable, without status epilepticus; F03.C0 Unspecified dementia, severe, without behavioral disturbance, psychotic disturbance, mood disturbance, and anxiety; R13.12 Dysphagia, oropharyngeal phase; F43.10 Post-traumatic stress disorder, unspecified; D64.9 Anemia, unspecified; Z82.49 Family history of ischemic heart disease and other diseases of the circulatory system; Z86.73 Personal history of transient ischemic attack (TIA), and cerebral infarction without residual deficits; Z79.899 Other long term (current) drug therapy; Z79.82 Long term (current) use of aspirin
CPT/HCPCS: 36415; 36569; 36600; 70450; 70551; 71045; 72220; 80048; 80053; 80061; 80076; 80164; 80185; 80202; 80307; 80320; 81001; 82607; 82746; 82805; 83090; 83605; 83735; 84439; 84443; 84484; 85025; 85610; 85652; 85730; 87040; 87077; 87086; 87186; 87205; 87426; 87804; 92610; 93005; 94640; 95819; 96361; 96365; 96366; 96375; 96376; 97163; 99291; A4565; G0378; J0690; J0696; J1100; J2001; J2250; J2405; J2704; J3480; J3490; J7060